=== PATIENT | male | born 1990 | race Caucasian/White ===

== ENCOUNTER → 2016-08-29 | Day surgery (SDC) | payer OTHER ==
[~2016-08-29] MED LIST: FISH OIL 1,2001 CAP PO; MULTI-VITAMIN1 EAC1 PO; VIT B-12 PO; VITAMIN C500 MG PO
--- NOTE | ~2016-08-29 | OR ---
Unit #: [id number] #: [id number] Patient: JADA CASON [id number] [facility]. [address] [place], [place] [address] [id number] MR#: [id number] NAME: JADA CASON ROOM: Date of Procedure: 08/29/2016 Admission Date: 08/29/2016 Surgeon: Joshua Nieves Jr., M.D. : 1990 Attending Physician: Joshua Nieves Jr., M.D. Referring Physician: Joshua Nieves Jr., M.D. Primary Care Physician: Jai Hensley M.D. OPERATIVE REPORT INDICATIONS FOR PROCEDURE The patient is a 26-year-old white male, recently presented to the office complaining of pain and discomfort with a bulge in the right inguinal area. He is brought in this time for right inguinal hernia repair open and understands the procedure including the risks, including that of infection, recurrence, chronic nerve injury, and pain and injury to the cord and testicle, and consents. PREOPERATIVE DIAGNOSIS Right inguinal hernia. POSTOPERATIVE DIAGNOSIS Right inguinal hernia, noting a sliding inguinal hernia with indirect sac. ANESTHESIA General with LMA and 0.5% Marcaine with epinephrine locally. PROCEDURE PERFORMED Open right inguinal hernia repair using plug and patch technique with high ligation of the sac. DESCRIPTION OF PROCEDURE The patient was positioned in supine position. After being anesthetized with LMA, he was prepped and draped in routine fashion for right inguinal hernia repair. The right inguinal area was locally blocked with 0.5% Marcaine with epinephrine as a field block. A transverse incision was made approximately 3 inches in length over the right inguinal canal. This was carried down through the subcutaneous tissue through Erickson and Camper fascia and the external oblique fascia. The external oblique was split from the external ring up to the internal ring and passed this with the Metzenbaum scissors. The cord structures were elevated from the pubic tubercle and freed back to the internal ring and multiple cremasteric fibers were divided with the Bovie cautery. There was an indirect sac present with no evidence of any weakness through the floor of the inguinal canal. The ilioinguinal nerve was retracted laterally to avoid any entrapment or injury and at this point, the hernia sac was freed up of the cord structures and opened and there was a sliding component of the colon within it. This appeared to be the cecum. The cecum was freed up of the hernia sac delivered back into the abdomen and the hernia sac high ligated with a pursestring followed by 0 Ethibond transfixion stitch. The redundant portion of the hernia sac was excised with a Bovie cautery. The stump retracted well up into the internal ring. A medium plug and patch Unit #: [id number] #: [id number] Patient: JADA CASON was then opened and the plug was placed in the internal ring area and sutured circumferentially with interrupted 0 Ethibond sutures. The patch was placed over the floor of the inguinal canal and sutured to the pubic tubercle and up around the cord structures with interrupted 0 Ethibond sutures. After this was complete, there was excellent coverage and repair of the hernia with no evidence of any problems. There was no evidence of any bleeding. The cord structures and ilioinguinal nerve were placed back beneath the external oblique fascia and after irrigating the wound and checking for hemostasis which was noted, the external oblique fascia was closed with a continuous 3-0 Vicryl suture. Erickson and Camper fascia was approximated with interrupted 3-0 Vicryl sutures. Skin edges approximated with stainless-steel skin clips and skin stapling device. Sterile dressings were applied externally. Estimated blood loss less than 35 mL. The patient received less than 1000 mL crystalloid solution during the procedure. Sponges and instruments counts were correct x3. No drains were used. No complications. The patient was taken to the recovery room with stable vital signs in satisfactory condition. Dictated by... Joshua Nieves Jr., M.D. JMB/alex TD: 08/30/2016 01:14 JOB #: [id number] OPERATIVE REPORT Page 1 of 1 X Joshua Nieves MD PROCEDURE OPERATIVE NOTE
== END | disposition home or self-care (01) ==
LOC: CSUR 06:05
DX: K40.90 Unilateral inguinal hernia, without obstruction or gangrene, not specified as recurrent (principal); F17.210 Nicotine dependence, cigarettes, uncomplicated; Z79.899 Other long term (current) drug therapy; Z90.49 Acquired absence of other specified parts of digestive tract
CPT/HCPCS: C1781; J0690; J2250; J2405; J3010